=== PATIENT | male | born 2000 | race Caucasian/White ===

== ENCOUNTER 2021-07-31 15:50 | Day surgery (SDC) | payer OTHER ==
[~2021-07-31] VITALS: Ht 188 cm; Wt 128.8 kg
[2021-07-31] VITALS (10 sets, daily range): BP systolic 112–140; BP diastolic 59–92; PULSE 65–82; TEMP 98.1–98.3
--- NOTE | 2021-07-31 16:41 | NUR ---
Patient alert and oriented, answers questions appropriately. See initial assessment. C/o burning with urination, no frequency or hesitancy. No c/o flank or abdominal pain. NPO since 829. No c/o at this time.
--- NOTE | 2021-07-31 17:24 | NUR ---
To procedure with surgery staff at this time.
--- NOTE | 2021-07-31 19:30 | NUR ---
PATIENT RETURNED TO ROOM 344 FROM PACU. PATIENT IS ALERT AND ORIENTED X4. DENIES PAIN. VSS. PATIENT IS ON GENERAL DIET, GIVEN SANDWICH BOX. PATIENT HAS IV TO RIGHT AC. PATIENT STATES HE HAS NOT VOIDED OR PASSED GAS SINCE SURGERY. NO FURTHER NEEDS AT THIS TIME. CALL LIGHT WITHIN REACH. HEAD TO TOE ASSESSMENT COMPLETE.
[2021-08-01 03:30] VITALS: BP 123/54; PULSE 80; TEMP 98.7
--- NOTE | 2021-08-01 06:12 | NUR ---
PATIENT DID WELL THROUGHOUT NIGHT. WAS ABLE TO SLEEP MOST OF NIGHT. PATIENT WAS ABLE TO VOID AFTER SURGERY. PATIENT DENIES PAIN. NO FURTHER NEEDS AT THIS TIME. WILL REPORT TO DAYSHIFT.
[2021-08-01 07:24] VITALS: BP 109/51; PULSE 72; TEMP 97.6
--- NOTE | 2021-08-01 09:44 | NUR ---
Initial visit; Patient thanked [employer] for stopping by although he is not restorationist, he said but was ok with [employer] offering God's blessings this morning.
--- NOTE | 2021-08-01 10:04 | NUR ---
MARGO met with the patient to discuss discharge plan. The patient lives alone on [address]. He reports independence with ADLs and does not have any DME. The patient receives primary care from [facility] and he receives his medications on [address]. The patient is not sure if he has a DPOA-HC and he was not interested in completing one while here. The patient is not and does not have any children. His mother, Dominga Aguirre (ph#[phone]) is his next of kin and his person to contact. Dominga lives in [facility]. He states that his father is not really involved. The patient plans to return home upon discharge. No additional needs at this time. *Discharge plan: home*
--- NOTE | 2021-08-01 10:13 | NUR ---
Patient alert and oriented, answers questions appropriately. See assessment. No c/o flank or abdominal pain. No c/o urinary hesitancy or frequency, some burning. No other c/o at this time.
[2021-08-01 11:12] VITALS: BP 111/51; PULSE 67; TEMP 98
--- NOTE | 2021-08-01 12:30 | NUR ---
Discharge instructions reviewed with patient, verbalized understanding. Discharged via wheelchair to auto/home at 1228.
== END 2021-08-01 12:28 | disposition home or self-care (01) ==
LOC: SURG 15:50 → SDCO 15:50 → SURG 15:50 → EDSTATUS 16:30 → SDCO 08-01 12:28 → SURG 08-01 12:28
DX: N20.1 Calculus of ureter (principal); R82.81 Pyuria
CPT/HCPCS: OP; C1769; C2617; G0378; Q9967